=== PATIENT | male | born 1990 | race Caucasian/White ===

== ENCOUNTER 2017-05-04 14:23 | Inpatient (IN) | payer OTHER ==
[2017-05-04 15:00] VITALS: BMI 23.7
--- NOTE | 2017-05-04 15:12 | HP ---
COWS - Scale Resting Pulse: 0= [place] 80 or Below Sweatin=Flushed/Facial Moisture Restless Observation: 3= Extraneous Movement Pupil Size: 2= Moderately Dilated Bone or Joint Aches: 2= Severe Diffuse Aches Runny Nose/ Eye Tearin= Runny Nose/Eyes GI Upset > 30mins: 3= Vomiting/Diarrhea Tremor Observation: 2= Slight Tremor Visible Yawning Observation: 2= >3x During Session Anxiety or Irritability: 2=Irritable/Anxious Goose Flesh Skin: 0=Smooth Skin COWS Score: 20 CIWA Score - CIWA Score Nausea/Vomitin Muscle Tremors: 3 Anxiety: 3 Agitation: 3 Paroxysmal Sweats: 2 Orientation: 0-Oriented Tacttile Disturbances: 2-Mild Itch/Numbness/Burn Auditory Disturbances: 2-Mild Harshness/Frighten Visual Disturbances: 1-Very Mild Sensitivity Headache: 2-Mild CIWA-Ar Total Score: 21 Admission ROS BHS - HPI Chief Complaint: I NEED HELP TO STOP USING HEROIN,KLONOPIN,COCAINE,STREET METHADONE Allergies/Adverse Reactions: Allergies Allergy/AdvReac Type Severity Reaction Status Date / Time No Known Allergies Allergy Verified 05/04/17 15:01 History of Present Illness: THIS 27 YEARS OLD MALE WITH HEROIN AND KLONOPIN DEPENDENCE,ALSO COCAINE AND STREET METHADONE,SEEKING DETOX,LAST TREATMENT 02/24 [facility] PANIC ATTACK ADHD NO SIGNIFICANT PERIOD OF SOBRIETY Exam Limitations: No Limitations - Ebola screening Have you traveled outside of the country in the last 21 days: No Have you had contact with anyone from an Ebola affected area: No Have you been sick,other than usual withdrawal symptoms: No Do you have a fever: No - Review of Systems Constitutional: Chills, Diaphoresis, Loss of Appetite, Malaise, Night Sweats, Changes in sleep, Weakness EENT: reports: Tearing, Nose Congestion Respiratory: reports: No Symptoms reported Cardiac: reports: Palpitations GI: reports: Diarrhea, Nausea, Poor Appetite, Vomiting, Abdominal cramping : reports: No Symptoms Reported Musculoskeletal: reports: Back Pain, Joint Pain, Muscle Pain, Neck Pain Integumentary: reports: Dryness Neuro: reports: Headache, Tremors Endocrine: reports: No Symptoms Reported Hematology: reports: No Symptoms Reported Psychiatric: reports: No Sypmtoms Reported, Judgement Intact, Mood/Affect Appropiate, Orientated x3 Other Systems: Reviewed and Negative Patient History - Patient Medical History Hx Anemia: No Hx Asthma: No Hx Chronic Obstructive Pulmonary Disease (COPD): No Hx Cancer: No Hx Cardiac Disorders: No Hx Congestive Heart Failure: No Hx Hypertension: No Hx Hypercholesterolemia: No Hx Pacemaker: No HX Cerebrovascular Accident: No Hx Seizures: No Hx Dementia: No Hx Diabetes: No Hx Gastrointestinal Disorders: No Hx Liver Disease: No Hx Genitourinary Disorders: No Hx Sexually Transmitted Disorders: No Hx Renal Disease (ESRD): No Hx Thyroid Disease: No Hx Human Immunodeficiency Virus (HIV): No (LAS TESTED 04/27 NEGATIVE) Hx Hepatitis C: No Hx Depression: Yes (ANXIETY) Hx Suicide Attempt: No Hx Bipolar Disorder: No Hx Schizophrenia: No Other Medical History: PANIC ATTACK,ADHD - Patient Surgical History Past Surgical History: No - PPD History Previous Implant?: Yes Documented Results: Negative w/o proof Implanted On Prior [facility] Admission?: No PPD to be Administered?: Yes - Smoking Cessation Smoking history: Current every day smoker Have you smoked in the past 12 months: Yes Aproximately how many cigarettes per day: 2 Cigars Per Day: 0 Hx Chewing Tobacco Use: No Initiated information on smoking cessation: Yes 'Breaking Loose' booklet given: 05/04/17 - Substance & Tx. History Hx Alcohol Use: Yes Hx Substance Use: Yes Substance Use Type: Cocaine, Heroin, Tranquilizers Hx Substance Use Treatment: Yes ([facility] [place] 02/24) - Substances Abused Heroin Route: Inhalation Frequency: Daily Amount used: 10 BAGS Age of first use: 27 Date of Last Use: 05/04/17 Alprazolam (Xanax) Route: Oral Frequency: Daily Amount used: 2MGS TO 4 MGS Age of first use: 17 Date of Last Use: 05/03/17 Benzodiazepine (Klonopin) Route: Oral Frequency: Daily Amount used: 2 MGS Age of first use: 17 Date of Last Use: 05/04/17 Cocaine Route: Inhalation Frequency: 1-3 times last 30 days Amount used: 50$ Age of first use: 19 Date of Last Use: 04/30/17 METHADONE Route: Oral Frequency: 1-3 times last 30 days Amount used: 20 MGS Age of first use: 27 Date of Last Use: 05/02/17 Family Disease History - Family Disease History Family History: Denies Admission Physical Exam [facility] - Vital Signs Vital Signs: Vital Signs - 24 hr 05/04/17 14:57 Temperature 97.2 F L Pulse Rate 78 Respiratory 20 Rate Blood Pressure 140/78 - Physical General Appearance: Yes: Moderate Distress, Tremorous, Irritable, Sweating, Anxious HEENTM: Yes: Normal ENT Inspection, FRANK, Pharynx Normal Respiratory: Yes: Lungs Clear, Normal Breath Sounds, No Respiratory Distress Neck: Yes: Within Normal Limits, Supple, Trachea in good position Breast: Yes: Within Normal Limits Cardiology: Yes: Within Normal Limits, Regular Rhythm, Regular Rate, S1, S2 Abdominal: Yes: Within Normal Limits, Normal Bowel Sounds, Non Tender, Flat, Soft Genitourinary: Yes: Within Normal Limits Back: Yes: Muscle Spasm Musculoskeletal: Yes: full range of Motion, Back pain, Joint Stiffness, Muscle Pain Extremities: Yes: Within Normal Limits, Normal Capillary Refill, Normal Inspection, Normal Range of Motion Neurological: Yes: hotel front desk clerk II-XII NML intact, Fully Oriented, Alert, Motor Strength 5/5 Integumentary: Yes: Dry Lymphatic: Yes: Within Normal Limits - Diagnostic (1) Opioid dependence with withdrawal Current Visit: Yes Status: Acute (2) Uncomplicated sedative, hypnotic or anxiolytic withdrawal Current Visit: Yes Status: Acute (3) Cocaine dependence Current Visit: Yes Status: Acute (4) Panic attack Current Visit: Yes Status: Acute (5) ADHD Current Visit: Yes Status: Acute Cleared for Admission [facility] - Detox or Rehab [facility] Level of Care: Medically Managed Detox Regimen/Protocol: Methadone/Valium [facility] Breath Alcohol Content Breath Alcohol Content: 0 Urine Drug Screen - Results Drug Screen Negative: No Urine Drug Screen Results: KAYLENE-Cocaine, OPI-Opiates, AMP-Amphetamines, BZO- Benzodiazepines, MTD-Methadone
[2017-05-04] MEDS ORDERED: chlordiazePOXIDE HCL 25 MG CAPSULE PO ONE (15:30)
[2017-05-04] MEDS ORDERED: METHADONE HCL 10 MG TABLET (FOR DETOX USE ONLY) PO ONE ×2 (15:30→23:00)
[2017-05-04] MEDS ORDERED: diphenhydrAMINE HCL 50 MG CAPSULE PO PRN (15:30)
[2017-05-04] MEDS ORDERED: chlordiazePOXIDE HCL 25 MG CAPSULE PO PRN (15:30)
[2017-05-04] MEDS ORDERED: MENTHOL/PHENOL 1 EACH UD MM PRN (15:30)
[2017-05-04] MEDS ORDERED: IBUPROFEN 400 MG TABLET (FP) PO PRN (15:30)
[2017-05-04] MEDS ORDERED: guaiFENesin/D-METHORPHAN HB 10 ML UNIT-DOSE CUPS PO PRN (15:30)
[2017-05-04] MEDS ORDERED: hydrOXYzine PAMOATE 50 MG CAPSULE (FP) PO PRN (15:30)
[2017-05-04] MEDS ORDERED: LOPERAMIDE HCL 2 MG CAPSULE PO PRN (15:30)
[2017-05-04] MEDS ORDERED: P-EPHED 60MG/TRIPROLIDI 2.5MG TABLET PO PRN (15:30)
[2017-05-04] MEDS ORDERED: ACETAMINOPHEN 325 MG TABLET (FP) PO PRN (15:30)
[2017-05-04] MEDS ORDERED: MAGNESIUM HYDROX 2400MG/30ML ORAL SUSPENSION 30 ML CUP PO PRN (15:30)
[2017-05-04] MEDS ORDERED: MAG HYDROX/AL HYDROX/SIMETH 30 ML UNIT-DOSE CUP PO PRN (15:30)
[2017-05-04] MEDS ORDERED: MAGNESIUM CITRATE 300 ML BOTTLE PO PRN (15:30)
[2017-05-04] MEDS ORDERED: diazePAM 5 MG TABLET PO ONE (15:35)
[2017-05-04] MEDS ORDERED: chlordiazePOXIDE HCL 25 MG CAPSULE PO SCH (17:00)
[2017-05-04] MEDS ORDERED: CYCLOBENZAPRINE HCL 10 MG TABLET (FP) PO PRN (18:49)
[2017-05-04] MEDS: NICOTINE POLACRILEX 2 MG GUM BUC PRN (19:42)
[2017-05-04] MEDS: diazePAM 5 MG TABLET PO SCH (22:38)
[2017-05-04] MEDS: cloNIDine HCL 0.1 MG TABLET PO SCH (23:17)
[2017-05-04] MEDS: THIAMINE HCL 100 MG TABLET (FP) PO SCH (23:18)
[2017-05-05 00:24] LABS: URINE APPEARANCE SLCLOUDY; URINE BILIRUBIN NEGATIVE (NEGATIVE); URINE BLOOD NEGATIVE (NEGATIVE); URINE GLUCOSE (UA) NEGATIVE (NEGATIVE); URINE KETONE NEGATIVE (NEGATIVE); URINE LEUK ESTERASE NEGATIVE (NEGATIVE); URINE NITRITE NEGATIVE (NEGATIVE); URINE PROTEIN NEGATIVE (NEGATIVE)
[2017-05-05 00:26] LABS: URINE COLOR YELLOW
[2017-05-05] MEDS: diazePAM 5 MG TABLET PO SCH ×3 (06:26→22:32)
[2017-05-05] MEDS: NICOTINE POLACRILEX 2 MG GUM BUC PRN ×5 (06:30→22:35)
[2017-05-05] MEDS ORDERED: ONDANSETRON *ODT* 4 MG TABLET SL PRN (09:31)
--- NOTE | 2017-05-05 09:39 | CONSULT ---
[facility] Psychiatric Consult - Data Date of interview: 05/05/17 Admission source: [facility] Identifying data: Fatuma 27 years old male with n0o psychiatric hospitalization history intoxicated with: Alcohol, Cocaine,, Opiuoids, Xanax, Substance Abuse History: - Smoking Cessation. Smoking history: Current every day smoker. Have you smoked in the past 12 months: Yes. Aproximately how many cigarettes per day: 2. Cigars Per Day: 0. Hx Chewing Tobacco Use: No. Initiated information on smoking cessation: Yes. 'Breaking Loose' booklet given : 05/04/17. - Substance & Tx. History. Hx Alcohol Use: Yes. Hx Substance Use : Yes. Substance Use Type: Cocaine, Heroin, Tranquilizers. Hx Substance Use Treatment: Yes ([facility] [place] 02/24). - Substances Abused. Heroin. Route : Inhalation. Frequency: Daily. Amount used: 10 BAGS. Age of first use: 27. Date of Last Use: 05/04/17. Alprazolam (Xanax). Route: Oral. Frequency: Daily. Amount used: 2MGS TO 4 MGS. Age of first use: 17. Date of Last Use: . Benzodiazepine (Klonopin). Route: Oral. Frequency: Daily. Amount used: 2 MGS. Age of first use: 17. Date of Last Use: 05/04/17. Cocaine. Route: Inhalation. Frequency: 1-3 times last 30 days. Amount used: 50$. Age of first use: 19. Date of Last Use: 04/30/17. METHADONE. Route: Oral. Frequency: 1-3 times last 30 days. Amount used: 20 MGS. Age of first use: 27. Date of Last Use: 05/02/17 Medical History: Denies Psychiatric History: Patoient reprots history of ADHD, PANIC ATTACKS DISORDER, PREOCCUPIED WITH oPIOIDS DEPENDENCY, MOTIVATED TO START sUBOXONE PROTOCOL AFTER DETOXIFICATIONS Physical/Sexual Abuse/Trauma History: Denies Additional Comment: Obswrvation. Detox Unit Care Protocol Mental Status Exam - Mental Status Exam Alert and Oriented to: Person Cognitive Function: Fair Patient Appearance: Unkempt Mood: Anxious Affect: Labile Patient Behavior: Cooperative Speech Pattern: Appropriate Voice Loudness: Normal Thought Process: Goal Oriented Thought Disorder: Being Controlled Hallucinations: Denies Suicidal Ideation: Denies Homicidal Ideation: Denies Insight/Judgement: Fair Sleep: Difficulty falling asleep Appetite: Weight loss Muscle strength/Tone: Normal Gait/Station: Normal Additional Comments: Observation. Detox Unit Care Protocol Psychiatric Findings - Problem List ([place] 1, 2,3) (1) ADHD Current Visit: Yes Status: Acute (2) Cocaine dependence Current Visit: Yes Status: Acute (3) Opioid dependence with withdrawal Current Visit: Yes Status: Acute (4) Panic attack Current Visit: Yes Status: Acute (5) Uncomplicated sedative, hypnotic or anxiolytic withdrawal Current Visit: Yes Status: Acute (6) Drug-induced mood disorder Current Visit: Yes Status: Acute - Initial Treatment Plan Initial Treatment Plan: Observation. Detox Unit Care Protocol
[2017-05-05] MEDS ORDERED: METHADONE HCL 10 MG TABLET (FOR DETOX USE ONLY) PO SCH (10:00)
[2017-05-05 10:18] LABS: MCH 29.2 pg (25.7-33.7); MCHC 34.3 g/dl (32.0-35.9); MEAN CELL VOLUME 85.2 fl (80-96); MEAN PLT VOLUME 8.7 fl (7.5-11.1); PLATELET COUNT 225 K/MM3 (134-434); RDW 13.5 % (11.9-15.9); WHITE BLOOD COUNT 5.2 K/mm3 (4.0-10.0)
[2017-05-05 10:22] LABS: ALBUMIN 3.8 g/dl (3.4-5.0); ANION GAP 4 (8-16); CALCIUM 9.4 mg/dL (8.5-10.1); CO2 32 mmol/L (21-32); GLUCOSE,RANDOM 101 mg/dL (74-106); SGOT/AST 32 U/L (15-37); SGPT/ALT 35 U/L (12-78)
[2017-05-05 10:24] LABS: ALK PHOS 65 U/L (45-117); BILIRUBIN,TOTAL 0.6 mg/dL (0.2-1.0); CREATININE 1.2 mg/dL (0.7-1.3); TOT PROT 7.4 g/dl (6.4-8.2)
[2017-05-05] MEDS: NICOTINE 14 MG/24 HOURS TOPICAL PATCH TD SCH (10:45)
[2017-05-05] MEDS: PRENATAL VITAMINS W/ FOLIC ACID TABLET (FP) PO SCH (10:45)
[2017-05-05] MEDS: cloNIDine HCL 0.1 MG TABLET PO SCH ×2 (10:46→22:32)
--- NOTE | 2017-05-05 10:46 | PN ---
[facility] CIWA - CIWA Score Nausea/Vomitin Muscle Tremors: 3 Anxiety: 3 Agitation: 3 Paroxysmal Sweats: 1-Minimal Palms Moist Orientation: 0-Oriented Tacttile Disturbances: 1-Very Mild Itch/Numbness Auditory Disturbances: 1-Very Mild Visual Disturbances: 0-None Headache: 2-Mild CIWA-Ar Total Score: 17 BHS COWS - Scale Resting Pulse: 1= [place] 81-100 Sweatin= Chills/Flushing Restless Observation: 3= Extraneous Movement Pupil Size: 1= Pupils >than Normal Bone or Joint Aches: 2= Severe Diffuse Aches Runny Nose/ Eye Tearin= Runny Nose/Eyes GI Upset > 30mins: 2= Nausea/Diarrhea Tremor Observation of Outstretched Hands: 2= Slight Tremor Visible Yawning Observation: 1= 1-2x During Session Anxiety or Irritability: 2=Irritable/Anxious Goose Flesh Skin: 0=Smooth Skin COWS Score: 17 [facility] Progress Note (SOAP) Subjective: ALERT,IRRITABLE,ANXIOUS,INTERRUPTED SLEEP,PAIN IN THE BODY,TREMOR Objective: 05/05/17 10:43 Vital Signs Temperature 98.1 F 05/05/17 10:00 Pulse Rate 81 05/05/17 10:00 Respiratory Rate 18 05/05/17 10:00 Blood Pressure 105/66 05/05/17 10:00 O2 Sat by Pulse Oximetry (%) 05/05/17 10:43 EKG NSR 62/MIN Laboratory Last Values WBC 5.2 K/mm3 (4.0-10.0) 05/05/17 07:50 RBC 4.94 M/mm3 (4.00-5.60) 05/05/17 07:50 Hgb 14.5 GM/dL (11.7-16.9) 05/05/17 07:50 Hct 42.1 % (35.4-49) 05/05/17 07:50 MCV 85.2 fl (80-96) 05/05/17 07:50 MCH 29.2 pg (25.7-33.7) 05/05/17 07:50 MCHC 34.3 g/dl (32.0-35.9) 05/05/17 07:50 RDW 13.5 % (11.9-15.9) 05/05/17 07:50 Plt Count 225 K/MM3 (134-434) 05/05/17 07:50 MPV 8.7 fl (7.5-11.1) 05/05/17 07:50 Sodium 139 mmol/L (136-145) 05/05/17 07:50 Potassium 4.0 mmol/L (3.5-5.1) 05/05/17 07:50 Chloride 103 mmol/L (98-107) 05/05/17 07:50 Carbon Dioxide 32 mmol/L (21-32) 05/05/17 07:50 Anion Gap 4 (8-16) L 05/05/17 07:50 BUN 11 mg/dL (7-18) 05/05/17 07:50 Creatinine 1.2 mg/dL (0.7-1.3) 05/05/17 07:50 Creat Clearance w eGFR > 60 (>60) 05/05/17 07:50 Random Glucose 101 mg/dL (74-106) 05/05/17 07:50 Calcium 9.4 mg/dL (8.5-10.1) 05/05/17 07:50 Total Bilirubin 0.6 mg/dL (0.2-1.0) 05/05/17 07:50 AST 32 U/L (15-37) 05/05/17 07:50 ALT 35 U/L (12-78) 05/05/17 07:50 Alkaline Phosphatase 65 U/L (45-117) 05/05/17 07:50 Total Protein 7.4 g/dl (6.4-8.2) 05/05/17 07:50 Albumin 3.8 g/dl (3.4-5.0) 05/05/17 07:50 Urine Color Yellow 05/04/17 16:48 Urine Appearance Slcloudy 05/04/17 16:48 Urine pH 5.0 (5.0-8.0) 05/04/17 16:48 Urine Protein Negative (NEGATIVE) 05/04/17 16:48 Urine Glucose (UA) Negative (NEGATIVE) 05/04/17 16:48 Urine Ketones Negative (NEGATIVE) 05/04/17 16:48 Urine Blood Negative (NEGATIVE) 05/04/17 16:48 Urine Nitrite Negative (NEGATIVE) 05/04/17 16:48 Urine Bilirubin Negative (NEGATIVE) 05/04/17 16:48 Urine Urobilinogen 2.0 mg/dL (0.2-1.0) 05/04/17 16:48 Assessment: 05/05/17 10:45 WITHDRAWAL SYMPTOM Plan: CONTINUE DETOX
[2017-05-05] MEDS: diazePAM 5 MG TABLET PO PRN ×2 (12:51→17:15)
[2017-05-05] MEDS ORDERED: chlordiazePOXIDE HCL 25 MG CAPSULE PO SCH (17:00)
[2017-05-05] MEDS: THIAMINE HCL 100 MG TABLET (FP) PO SCH (22:32)
[2017-05-06] MEDS: diazePAM 5 MG TABLET PO PRN ×2 (06:07→15:13)
--- NOTE | 2017-05-06 09:57 | PN ---
S CIWA - CIWA Score Nausea/Vomitin Muscle Tremors: 4-Moderate,w/Arms Extend Anxiety: 4-Mod. Anxious/Guarded Agitation: 4-Moderately Restless Paroxysmal Sweats: 3 Orientation: 0-Oriented Tacttile Disturbances: 0-None Auditory Disturbances: 0-None Visual Disturbances: 0-None Headache: 0-None Present CIWA-Ar Total Score: 18 BHS COWS - Scale Resting Pulse: 1= [place] 81-100 Sweatin= Chills/Flushing Restless Observation: 1= Difficult to Sit Still Pupil Size: 1= Pupils >than Normal Bone or Joint Aches: 1= Mild Discomfort Runny Nose/ Eye Tearin= Nasal Congestion GI Upset > 30mins: 2= Nausea/Diarrhea Tremor Observation of Outstretched Hands: 2= Slight Tremor Visible Yawning Observation: 1= 1-2x During Session Anxiety or Irritability: 2=Irritable/Anxious Goose Flesh Skin: 3=Piloerection COWS Score: 16 S Progress Note (SOAP) Subjective: nausea, sweats, interrrupted sleep, anxiety, tremors Objective: 05/06/17 09:56 Vital Signs - 24 hr 05/05/17 05/05/17 05/05/17 10:00 15:10 18:35 Temperature 98.1 F 97.0 F L 97.0 F L Pulse Rate 81 80 71 Respiratory 18 20 16 Rate Blood Pressure 105/66 122/65 108/54 05/05/17 05/06/17 05/06/17 23:22 03:30 06:47 Temperature 96.8 F L 97.2 F L Pulse Rate 79 74 Respiratory 18 18 18 Rate Blood Pressure 106/63 109/68 Laboratory Tests 05/04/17 05/05/17 05/05/17 16:48 07:50 07:50 WBC 5.2 RBC 4.94 Hgb 14.5 Hct 42.1 MCV 85.2 MCH 29.2 MCHC 34.3 RDW 13.5 Plt Count 225 MPV 8.7 Sodium 139 Potassium 4.0 Chloride 103 Carbon Dioxide 32 Anion Gap 4 L BUN 11 Creatinine 1.2 Creat Clearance w eGFR > 60 Random Glucose 101 Calcium 9.4 Total Bilirubin 0.6 AST 32 ALT 35 Alkaline Phosphatase 65 Total Protein 7.4 Albumin 3.8 Urine Color Yellow Urine Appearance Slcloudy Urine pH 5.0 Ur Specific [place] 1.025 Urine Protein Negative Urine Glucose (UA) Negative Urine Ketones Negative Urine Blood Negative Urine Nitrite Negative Urine Bilirubin Negative Urine Urobilinogen 2.0 RPR Titer 05/05/17 07:50 WBC RBC Hgb Hct MCV MCH MCHC RDW Plt Count MPV Sodium Potassium Chloride Carbon Dioxide Anion Gap BUN Creatinine Creat Clearance w eGFR Random Glucose Calcium Total Bilirubin AST ALT Alkaline Phosphatase Total Protein Albumin Urine Color Urine Appearance Urine pH Ur Specific [place] Urine Protein Urine Glucose (UA) Urine Ketones Urine Blood Urine Nitrite Urine Bilirubin Urine Urobilinogen RPR Titer Nonreactive Assessment: 05/06/17 09:57 withdrawwal sx Plan: cont detox, fluids, encourage ambualtion
[2017-05-06] MEDS ORDERED: METHADONE HCL 5 MG TABLET (FOR DETOX USE ONLY) PO SCH (10:00)
[2017-05-06] MEDS ORDERED: diazePAM 5 MG TABLET PO SCH (10:00)
[2017-05-06] MEDS: PRENATAL VITAMINS W/ FOLIC ACID TABLET (FP) PO SCH (10:50)
[2017-05-06] MEDS: cloNIDine HCL 0.1 MG TABLET PO SCH (10:50)
[2017-05-06] MEDS: NICOTINE 14 MG/24 HOURS TOPICAL PATCH TD SCH (10:51)
[2017-05-06] MEDS: NICOTINE POLACRILEX 2 MG GUM BUC PRN ×3 (10:53→15:52)
[2017-05-06] MEDS ORDERED: chlordiazePOXIDE 5 MG CAPSULE PO SCH (17:00)
[2017-05-06 17:45] VITALS: BP 120/59; PULSE 78; TEMP 98.6
--- NOTE | 2017-05-07 00:15 | DS ---
[facility] Detox Discharge Summary Admission Date: 05/04/17 Discharge Date: 05/07/17 - History Present History: Cocaine Dependence, Opioid Dependence, Sedative Dependence Additional Comments: FACE TO FACE WITH THE PATIENT TO DISCUSS ADDICTION RECOVERY, PATIENT REPORTS FEELING BETTER TODAY, WANTS A MONTH OR TWO SUBOXONE WITH HIM TO [place] ON FRIDAY, PROVIDING SUBOXONE CLINIC RESOURCES TO THE PATIENT, WHO INSISTS TO LEAVE THE UNIT. Pertinent Past History: anxiety disorder - Physical Exam Results Vital Signs: Vital Signs Temperature 98.6 F 05/06/17 17:44 Pulse Rate 78 05/06/17 17:44 Respiratory Rate 18 05/06/17 17:44 Blood Pressure 120/59 05/06/17 17:44 O2 Sat by Pulse Oximetry (%) Pertinent Admission Physical Exam Findings: withdrawal sx Laboratory Last Values WBC 5.2 K/mm3 (4.0-10.0) 05/05/17 07:50 RBC 4.94 M/mm3 (4.00-5.60) 05/05/17 07:50 Hgb 14.5 GM/dL (11.7-16.9) 05/05/17 07:50 Hct 42.1 % (35.4-49) 05/05/17 07:50 MCV 85.2 fl (80-96) 05/05/17 07:50 MCH 29.2 pg (25.7-33.7) 05/05/17 07:50 MCHC 34.3 g/dl (32.0-35.9) 05/05/17 07:50 RDW 13.5 % (11.9-15.9) 05/05/17 07:50 Plt Count 225 K/MM3 (134-434) 05/05/17 07:50 MPV 8.7 fl (7.5-11.1) 05/05/17 07:50 Sodium 139 mmol/L (136-145) 05/05/17 07:50 Potassium 4.0 mmol/L (3.5-5.1) 05/05/17 07:50 Chloride 103 mmol/L (98-107) 05/05/17 07:50 Carbon Dioxide 32 mmol/L (21-32) 05/05/17 07:50 Anion Gap 4 (8-16) L 05/05/17 07:50 BUN 11 mg/dL (7-18) 05/05/17 07:50 Creatinine 1.2 mg/dL (0.7-1.3) 05/05/17 07:50 Creat Clearance w eGFR > 60 (>60) 05/05/17 07:50 Random Glucose 101 mg/dL (74-106) 05/05/17 07:50 Calcium 9.4 mg/dL (8.5-10.1) 05/05/17 07:50 Total Bilirubin 0.6 mg/dL (0.2-1.0) 05/05/17 07:50 AST 32 U/L (15-37) 05/05/17 07:50 ALT 35 U/L (12-78) 05/05/17 07:50 Alkaline Phosphatase 65 U/L (45-117) 05/05/17 07:50 Total Protein 7.4 g/dl (6.4-8.2) 05/05/17 07:50 Albumin 3.8 g/dl (3.4-5.0) 05/05/17 07:50 Urine Color Yellow 05/04/17 16:48 Urine Appearance Slcloudy 05/04/17 16:48 Urine pH 5.0 (5.0-8.0) 05/04/17 16:48 Ur Specific [place] 1.025 (1.005-1.025) 05/04/17 16:48 Urine Protein Negative (NEGATIVE) 05/04/17 16:48 Urine Glucose (UA) Negative (NEGATIVE) 05/04/17 16:48 Urine Ketones Negative (NEGATIVE) 05/04/17 16:48 Urine Blood Negative (NEGATIVE) 05/04/17 16:48 Urine Nitrite Negative (NEGATIVE) 05/04/17 16:48 Urine Bilirubin Negative (NEGATIVE) 05/04/17 16:48 Urine Urobilinogen 2.0 mg/dL (0.2-1.0) 05/04/17 16:48 RPR Titer Nonreactive (NONREACTIVE) 05/05/17 07:50 lab noted - Treatment Hospital Course: Detox Protocol Followed, Responded well Patient has Accepted a Rehab Referral to: [facility] - Medication Discharge Medications: Ambulatory Orders Clonazepam [Klonopin -] 1 mg PO BID 05/04/17 Dextroamphetamine/Amphetamine [Adderall 10 mg Tablet] 10 mg PO TID 05/04/17 - Diagnosis (1) Opioid dependence with withdrawal Status: Acute (2) Anxiety Status: Suspected - AMA Did Patient Leave Against Medical Advice: Yes
--- NOTE | 2017-05-07 09:51 | EKG ---
Test Reason : Blood Pressure : / mmHG Vent. Rate : 062 BPM Atrial Rate : 062 BPM P-R Int : 150 ms QRS Dur : 106 ms QT Int : 428 ms P-R-T Axes : 055 088 053 degrees QTc Int : 434 ms NORMAL SINUS RHYTHM NORMAL ECG NO PREVIOUS ECGS AVAILABLE Confirmed by CALVIN GOMEZ, HERMINIO ([id number]) on 05/07/2017 9:50:33 AM Referred By: Confirmed By:HERMINIO SIMPSON MD
[2017-05-07] MEDS ORDERED: chlordiazePOXIDE HCL 10 MG CAPSULE PO SCH (17:00)
[2017-05-08] MEDS ORDERED: METHADONE HCL 10 MG TABLET (FOR DETOX USE ONLY) PO SCH (10:00)
[2017-05-08] MEDS ORDERED: diazePAM 5 MG TABLET PO SCH (10:00)
[2017-05-09] MEDS ORDERED: METHADONE HCL 5 MG TABLET (FOR DETOX USE ONLY) PO SCH (06:00)
== END 2017-05-06 18:00 | disposition left against medical advice (07) | DRG 770 ==
LOC: YASAS 14:23 → Y6N 15:27
PROVIDERS: ADMIT Internal Medicine; ATTEND Internal Medicine
PROC: HZ2ZZZZ Detoxification Services for Substance Abuse Treatment (ICD-10-PCS; principal; 2017-05-04)
DX: F11.23 Opioid dependence with withdrawal (principal); F13.230 Sedative, hypnotic or anxiolytic dependence with withdrawal, uncomplicated; F14.20 Cocaine dependence, uncomplicated; F41.9 Anxiety disorder, unspecified; F41.0 Panic disorder [episodic paroxysmal anxiety]; F90.9 Attention-deficit hyperactivity disorder, unspecified type; Z59.0 Homelessness
CPT/HCPCS: 36415; 80053; 81003; 85027; 86593; 93005; 93010